=== PATIENT | female | born 1965 | race Caucasian/White ===

== ENCOUNTER 2018-10-19 02:15 | Observation (INO) | payer SELFPAY ==
[2018-10-19] MEDS ORDERED: Oxymetazoline HCl 0.05% ( 15 ML ) ONE (03:46)
[2018-10-19] MEDS ORDERED: Lidocaine 4% Topical Sol 50 ML BOT ONE (03:46)
[2018-10-19] MEDS ORDERED: Benzocaine 20% Spray 60 ML CAN ONE (03:46)
[2018-10-19] MEDS ORDERED: Pantoprazole 40 MG VIAL ONE (04:56)
[2018-10-19] MEDS ORDERED: Lactated Ringer's 1,000 ML IV SCH (06:30)
[2018-10-19 07:18] VITALS: BMI 40.5
[2018-10-19] MEDS ORDERED: Acetaminophen 1,000 MG in Premix Bag 1 BAG IVPB PRN (07:26)
[2018-10-19] MEDS: Morphine 2 MG/ML SYRINGE SLOW IVP PRN (08:03)
--- NOTE | 2018-10-19 08:15 | RAD ---
FRadiograph abdomen one view: 10/19/2018 at 5:17 AM HISTORY: NG tube placement for small bowel obstruction FINDINGS: Esophagogastric tube is curled overlying left upper quadrant of the abdomen. Cholecystectomy clips in right upper quadrant. Stomach is not distended. IMPRESSION: Esophagogastric tube is curled over the fundus of the stomach.
[2018-10-19] MEDS ORDERED: Potassium Chloride 20 MEQ/100 ML PREMIX BAG IVPB SCH (08:45)
[2018-10-19] MEDS ORDERED: Sodium Chloride 0.9% (PF) 10 ML VIAL FS PRN (08:47)
[2018-10-19] MEDS ORDERED: Potassium Chloride 20 MEQ in Premix Bag 1 BAG IVPB SCH (09:00)
--- NOTE | 2018-10-19 09:17 | RAD ---
FRadiograph abdomen one view: 10/19/2018 8:57 AM HISTORY: Manipulation of NG tube COMPARISON: 10/19/2018 at 5:17 AM FINDINGS: The NG tube has changed position. It now loops to the right side of the upper abdomen, then doubles b ack upon itself such that the distal tip is in the region of the gastric cardia. The stomach has been further decompressed and is now collapsed. IMPRESSION: Esophagogastric tube loops to the distal stomach, then doubles back on itself to the proximal stomach .
[2018-10-19] MEDS: Pantoprazole 40 MG VIAL IVP SCH (09:39)
[2018-10-19] MEDS: D5 1/2 NS w/20 mEq KCL 1,000 ML IV SCH ×2 (09:40→20:08)
[2018-10-19] MEDS ORDERED: Enoxaparin Sodium 40 MG/0.4 ML SYRINGE SC SCH ×2 (11:00→12:00)
[2018-10-19] MEDS ORDERED: DULoxetine 60 MG CAP PO SCH (11:15)
[2018-10-19] MEDS: Ondansetron PF 4 MG/2 ML Vial IVP PRN (13:10)
[2018-10-19] MEDS: Morphine 4 MG/ML VIAL SLOW IVP PRN ×2 (13:10→20:41)
[2018-10-19] MEDS: rOPINIRole HCl 1 MG TAB PO SCH (20:30)
--- NOTE | 2018-10-19 21:53 | HP ---
CHIEF COMPLAINT: Abdominal pain. HISTORY OF PRESENT ILLNESS: Ms. Colon is a 53-year-old woman, who presented to the emergency room with a 2-day history of abdominal pain. She states that she has been throwing up as well as having multiple episodes of diarrhea and that the pain last night became unbearable, so she came into her local emergency room. A CT was obtained, which was suspicious for small-bowel obstruction, so she was transferred to [place] for further management. She had an NG tube placed with about 500 mL evacuated from the stomach in the emergency room. She is still a little nauseated, but not as bad as she was before. Her abdominal pain is better than when she came in, but has not really improved much in the emergency room. The patient denies any recent unusual ingestion. She does have a history of an ill family member. She states that her 8-year-old son had GI complaints last week and she took him into the emergency room last weekend. He was diagnosed with a viral illness. He also had nausea, vomiting, abdominal pain and diarrhea and she was told that it was a "highly contagious virus." She also was seen in the emergency room at that time for some upper airway issues and was told that she had a cold. PAST MEDICAL HISTORY: Restless legs syndrome, seasonal allergies, reflux and obesity. PAST SURGICAL HISTORY: Laparoscopic cholecystectomy and right arm surgery, psychiatric history of anxiety and depression, but no history of suicidal ideation or attempts. SOCIAL HISTORY: Half a pack a day tobacco abuse. No alcohol use or drug use. She lives at home with family. ALLERGIES: THE PATIENT HAS NO KNOWN DRUG ALLERGIES. OUTPATIENT MEDICATIONS: Include: 1. Cymbalta. 2. Propranolol. 3. Ropinirole. 4. Albuterol. 5. Alprazolam. 6. Pred Arturo. 7. She was supposed to get a Z-Arturo, but never got that prescription filled. PHYSICAL EXAMINATION: VITAL SIGNS: The patient has been afebrile since her admission, heart rate in the 70s, respirations 18, 94% saturated on room air, blood pressure 123/82. HEENT: Unremarkable. NECK: Supple without lymphadenopathy or thyroid nodules. HEART: Regular in its rate and rhythm without murmurs, rubs, or gallops. The patient has both inspiratory and expiratory wheezing bilaterally, but no crackles or evidence of consolidation. ABDOMEN: Soft and mildly diffusely tender without rigidity, rebound, or guarding. No palpable masses or hernias. Bowel sounds are diminished. EXTREMITIES: Warm and well perfused without edema. NEURO: No focal deficits. PSYCHIATRIC: Alert, oriented and appropriate, although somewhat anxious. LABORATORY DATA: White count is normal at 10.2 with a slight left shift, hematocrit 49.2, platelets 264. Potassium is slightly low at 3.4, BUN and creatinine 8 and 0.8, glucose 132. LFTs and lipase normal. CT images are reviewed and I agree with the written report. The patient has some mild dilation of the proximal bowel loops and distention of her stomach. The distal small bowel loops appear relatively decompressed, but I can't see a clear transition point. ASSESSMENT: Partial small-bowel obstruction versus ileus. The patient has had multiple episodes of diarrhea and I favor ileus due to gastroenteritis, but small bowel follow-through can't be excluded. If she has any more diarrhea, I would like to send stool studies, but she states that she has had only one bowel movement since admission to the hospital and does not feel the urge to have anymore. She does not have any recent exposure to antibiotics and I think C. difficile colitis is unlikely. She has not had a laparoscopic cholecystectomy as far as surgery, so intraabdominal adhesions are not expected to be a significant problem from the surgery, but partial obstruction due to adhesions is still possible. The patient is minimally symptomatic with the NG tube in place. We will give her 24 hours of bowel rest and obtain a small-bowel follow- through tomorrow. She can plan apparently to ambulate and we will restart her home medications. Job ID: [id number]
[2018-10-20] MEDS: D5 1/2 NS w/20 mEq KCL 1,000 ML IV SCH ×3 (01:37→17:00)
[2018-10-20] MEDS: Morphine 4 MG/ML VIAL SLOW IVP PRN ×3 (04:14→20:31)
[2018-10-20 05:49] LABS: #Eosinphils 0.2 thou/uL (0.0-0.7); #Lymphocytes 2.1 thou/uL (1.20-3.40); #Monocytes 0.6 thou/uL (0.11-0.59); #Neutrophils 4.4 thou/uL (1.40-6.50); %Basophils 0.3 % (0.0-1.0); %Eosinophils 3.3 % (0.0-10.0); %Lymphocytes 27.9 % (21.0-51.0); %Monocytes 8.5 % (0.0-10.0); Hemoglobin 12.9 g/dL (12.0-16.0); Mean Corpuscular HGB CONC 33.2 g/dL (32.0-36.0); Mean Corpuscular Hemoglobin 31.3 pg (27.0-31.0); Mean Corpuscular Volume 94.3 fL (78.0-98.0); Mean Platelet Volume 10.1 fL (7.4-10.4); Platelet Count 207 thou/uL (130-400); Red Blood Cell (RBC) Count 4.13 mill/uL (4.20-5.40); White Blood Cell (WBC) Count 7.4 thou/uL (4.8-10.8)
[2018-10-20 06:14] LABS: Anion Gap 10 mmol/L (10-20); BUN (Urea Nitrogen) 7 mg/dL (9.8-20.1); Calc. Creatinine Clearance 150 mL/min (70-130); Calcium 8.2 mg/dL (7.8-10.44); Carbon Dioxide 26 mmol/L (22-29); Chloride 107 mmol/L (98-107); Estimated GFR-MDRD 85; Glucose 99 mg/dL (70-105); Potassium 3.5 mmol/L (3.5-5.1); Sodium 139 mmol/L (136-145)
--- NOTE | 2018-10-20 08:39 | RAD ---
FCT angiogram thorax with contrast CT angiogram abdomen with contrast: HISTORY: 59-year-old male with sudden onset chest pain radiating to back and shoulders. History of hypertensio n. TECHNIQUE: IV injection of iodinated contrast. Arterial bolus chasing technique. Scan acquisition from top of aortic arch to iliac crests. 3-D MIP reconstructions. FINDINGS: There is no aortic dissection, aneurysm, or rupture. There is no pulmonary thromboembolism. Lungs are clear. No pleural effusion or pneumothorax. No pericardial effusion. No mediastinal or hilar lymphad enopathy. There is a horseshoe kidney. Normal appendix. No small bowel dilation. No free fluid within the abdominal cavity. Within the limitations of an arterial phase only scan, no obvious gross abnorm ality of spleen, pancreas, liver, or adrenals. IMPRESSION: 1. Normal aorta. 2. No pulmonary thromboembolism. 3. Horseshoe kidney.
[2018-10-20] MEDS ORDERED: ROPINIROLE HCL 3 MG PO SCH (09:00)
[2018-10-20] MEDS: DULoxetine 60 MG CAP PO SCH (12:22)
[2018-10-20] MEDS: Ondansetron PF 4 MG/2 ML Vial IVP PRN ×2 (12:22→17:00)
[2018-10-20] MEDS: ALPRAZolam 1 MG TAB PO SCH (12:22)
[2018-10-20] MEDS: Morphine 2 MG/ML SYRINGE SLOW IVP PRN ×2 (12:22→15:07)
[2018-10-20] MEDS: Enoxaparin Sodium 40 MG/0.4 ML SYRINGE SC SCH (12:23)
[2018-10-20] MEDS: Pantoprazole 40 MG VIAL IVP SCH (12:25)
[2018-10-20] MEDS ORDERED: Sodium Chloride 0.9% 10 ML ONE (12:28)
[2018-10-20] MEDS ORDERED: MD-Gastroview 120 ML BOT ONE (14:53)
[2018-10-20] MEDS: rOPINIRole HCl 1 MG TAB PO SCH (20:31)
[2018-10-21] MEDS: D5 1/2 NS w/20 mEq KCL 1,000 ML IV SCH ×3 (03:34→21:56)
[2018-10-21] MEDS: Pantoprazole 40 MG VIAL IVP SCH (08:30)
[2018-10-21] MEDS: Enoxaparin Sodium 40 MG/0.4 ML SYRINGE SC SCH (08:30)
[2018-10-21] MEDS: ALPRAZolam 1 MG TAB PO SCH (08:30)
[2018-10-21] MEDS: DULoxetine 60 MG CAP PO SCH (08:30)
[2018-10-21] MEDS: Ondansetron PF 4 MG/2 ML Vial IVP PRN ×2 (15:11→21:57)
[2018-10-21] MEDS: Morphine 2 MG/ML SYRINGE SLOW IVP PRN (15:11)
--- NOTE | 2018-10-21 17:02 | PDOC.GSPN ---
Surgery Progress Note: Subj - Subjective Narrative: Patient feels better today than right after the small bowel follow-through yesterday, but is still having abdominal pain and mild nausea. She has only been taking clear liquids. Afebrile with normal vital signs. No narcotic or anti-emetics since yesterday. Abdomen is soft and nondistended. Bowel sounds are still hypoactive. She has mild tenderness to palpation in the mid abdomen. Assessment/plan: Ileus versus partial small bowel obstruction, favor the former. Patient still with poor by mouth tolerance and continued nausea and pain so we'll continue to observe. Repeat abdominal films ordered. Surgery Progress Note: Obj - Vital signs Vital signs: Vital Signs - Most Recent Temp Pulse Resp BP Pulse Ox 98.2 F 73 14 127/84 95 10/21/18 16:40 10/21/18 16:40 10/21/18 16:40 10/21/18 16:40 10/21/18 16:40 Surgery Progress Note: Results - Labs Result Diagrams: 10/20/18 04:52 10/20/18 04:52
--- NOTE | 2018-10-21 18:37 | RAD ---
ABDOMEN TWO VIEWS: 10/21/18 HISTORY: Small bowel obstruction. FINDINGS: Postop changes of cholecystectomy are present. There is contrast in the colon and rectum. The bowel g as patter is unremarkable. IMPRESSION: No evidence of high grade bowel obstruction. POS: [facility]
[2018-10-21] MEDS: rOPINIRole HCl 1 MG TAB PO SCH (21:57)
[2018-10-21] MEDS: Morphine 4 MG/ML VIAL SLOW IVP PRN (21:57)
[2018-10-22] MEDS: D5 1/2 NS w/20 mEq KCL 1,000 ML IV SCH ×2 (03:47→17:30)
[2018-10-22] MEDS: DULoxetine 60 MG CAP PO SCH (09:09)
[2018-10-22] MEDS: Ondansetron PF 4 MG/2 ML Vial IVP PRN ×2 (09:09→20:17)
[2018-10-22] MEDS: ALPRAZolam 1 MG TAB PO SCH (09:09)
[2018-10-22] MEDS: Pantoprazole 40 MG VIAL IVP SCH (09:10)
[2018-10-22] MEDS: Enoxaparin Sodium 40 MG/0.4 ML SYRINGE SC SCH (09:10)
[2018-10-22] MEDS: Morphine 4 MG/ML VIAL SLOW IVP PRN ×2 (14:33→20:16)
[2018-10-22] MEDS: rOPINIRole HCl 1 MG TAB PO SCH (20:34)
--- NOTE | 2018-10-22 23:54 | PDOC.GSPN ---
Surgery Progress Note: Subj - Subjective Narrative: Patient was still having problems this morning with worsening pain and nausea when she tries to take brought or Jell-O. Abdomen soft nondistended mildly tender to palpation in the mid and lower abdomen. Diminished bowel sounds. Vitals okay. Assessment/plan: Continued ileus versus partial small bowel obstruction. Repeat abdominal film yesterday showed all the contrast to pass through into the colon with no abnormally dilated small bowel loops seen. Discussed with patient option of repeating CT with contrast that she wants to just wait another day. We will continue IV fluids and ambulation, with oral intake as tolerated. If she does not improve by tomorrow then repeat imaging will be strongly recommended. Surgery Progress Note: Obj - Vital signs Vital signs: Vital Signs - Most Recent Temp Pulse Resp BP Pulse Ox 97.5 F L 77 20 130/84 93 L 10/22/18 20:00 10/22/18 20:00 10/22/18 20:00 10/22/18 20:00 10/22/18 20:00 Surgery Progress Note: Results - Labs Result Diagrams: 10/20/18 04:52 10/20/18 04:52
[2018-10-23] MEDS: D5 1/2 NS w/20 mEq KCL 1,000 ML IV SCH ×2 (00:41→12:09)
[2018-10-23] MEDS: Morphine 4 MG/ML VIAL SLOW IVP PRN (05:02)
[2018-10-23] MEDS: Ondansetron PF 4 MG/2 ML Vial IVP PRN (05:03)
[2018-10-23 05:28] LABS: ALT (SGPT) 24 U/L (8-55); AST (SGOT) 22 U/L (5-34); Albumin 3.5 g/dL (3.5-5.0); Alkaline Phosphatase 57 U/L (40-150); Anion Gap 9 mmol/L (10-20); BUN (Urea Nitrogen) 8 mg/dL (9.8-20.1); Bilirubin, Total 0.2 mg/dL (0.2-1.2); Calc. Creatinine Clearance 144 mL/min (70-130); Calcium 8.8 mg/dL (7.8-10.44); Carbon Dioxide 31 mmol/L (22-29); Chloride 103 mmol/L (98-107); Estimated GFR-MDRD 81; Globulin 2.5 g/dL (2.4-3.5); Glucose 92 mg/dL (70-105); Lipase 8 U/L (8-78); Potassium 3.3 mmol/L (3.5-5.1); Sodium 140 mmol/L (136-145)
[2018-10-23 05:33] LABS: Band 1 % (5-11); Eosinophils 1 % (0-10); Hemoglobin 13.1 g/dL (12.0-16.0); Lymphocytes 41 % (21-51); MDiff Complete? YES; Mean Corpuscular HGB CONC 34.4 g/dL (32.0-36.0); Mean Corpuscular Hemoglobin 31.7 pg (27.0-31.0); Mean Corpuscular Volume 92.1 fL (78.0-98.0); Mean Platelet Volume 9.6 fL (7.4-10.4); Monocytes 2 % (0-10); Neutrophil 41 % (42-75); Platelet Count 223 thou/uL (130-400); Platelet Morphology Comment Appears Adequate; RBC Distribution Width 12.5 % (11.5-14.5); Reactive Lymphocytes 14 % (0-10); Red Blood Cell (RBC) Count 4.12 mill/uL (4.20-5.40); White Blood Cell (WBC) Count 7.5 thou/uL (4.8-10.8)
[2018-10-23] MEDS: Pantoprazole 40 MG VIAL IVP SCH (10:17)
[2018-10-23] MEDS: ALPRAZolam 1 MG TAB PO SCH (10:17)
[2018-10-23] MEDS: DULoxetine 60 MG CAP PO SCH (10:17)
[2018-10-23] MEDS: Enoxaparin Sodium 40 MG/0.4 ML SYRINGE SC SCH (10:18)
--- NOTE | 2018-10-23 10:22 | RAD ---
Small bowel series: 10/20/2018 HISTORY: 53-year-old female with dilated small bowel loops. Rule out small bowel obstruction versus ileus. TECHNIQUE: After thread separator view was obtained, Gastrografin was injected through the NG tube. Serial overhead radiogr aphs of the abdomen. FINDINGS: Gastrografin progresses through small bowel loops, some of which are dilated. Contrast reaches the co alpa by 3 hours. IMPRESSION: 1. No high-grade small bowel obstruction. 2. Somewhat slow small bowel transit time.
[2018-10-23] MEDS ORDERED: Promethazine 25 MG TAB PO PRN (11:19)
[2018-10-23] MEDS ORDERED: traMADol HCl 50 MG TAB PO PRN ×2 (11:19)
[2018-10-23] MEDS ORDERED: Acetaminophen 325 MG TAB PO PRN ×2 (11:19→11:20)
[2018-10-23 11:31] VITALS: BP 105/73; TEMP 97.8
[2018-10-23] MEDS ORDERED: HYDROcodone/Acetaminophen 5/325 mg Tablet PO PRN (11:39)
== END 2018-10-23 16:30 | disposition home or self-care (01) ==
LOC: ERS 02:15 → SURG A 05:28
PROVIDERS: ADMIT Surgery; ATTEND Surgery
DX: R10.9 Unspecified abdominal pain (principal); R11.0 Nausea; R19.7 Diarrhea, unspecified; G25.81 Restless legs syndrome; K21.9 Gastro-esophageal reflux disease without esophagitis; J30.2 Other seasonal allergic rhinitis; F41.9 Anxiety disorder, unspecified; F32.9 Major depressive disorder, single episode, unspecified; F17.210 Nicotine dependence, cigarettes, uncomplicated; E66.9 Obesity, unspecified; Z68.41 Body mass index [BMI] 40.0-44.9, adult; Z79.52 Long term (current) use of systemic steroids; Z79.899 Other long term (current) drug therapy
CPT/HCPCS: 36415; 74018; 74019; 74250; 80048; 80053; 83630; 83690; 85025; 87045; 87046; 87324; 87449; 87899; 90471; 90732; 96361; 96365; 96366; 96372; 96374; 96375; 96376; C9113; G0009; G0378; J1650; J2270; J2405; J3480; Q0169; Q9963